=== PATIENT | male | born 1950 | race Caucasian/White ===

== ENCOUNTER 2021-11-14 02:31 | Inpatient (IN) | payer MEDICARE ==
[2021-11-14] MEDS ORDERED: Dextrose 5% in Water 1,000 ML IV PRN (04:26)
[2021-11-14] MEDS ORDERED: Dextrose 50% Abboject 50 ML SYRINGE SLOW IVP PRN (04:26)
[2021-11-14] MEDS ORDERED: HumaLOG 300 UNITS/3 ML VIAL SC PRN ×2 (04:26)
[2021-11-14] MEDS ORDERED: Albuterol 200 PUFF (6.7GM INHALER) INH PRN (04:26)
[2021-11-14 05:21] VITALS: BMI 31.1
[2021-11-14] MEDS ORDERED: Furosemide 40 MG/4 ML VIAL SLOW IVP SCH (06:00)
[2021-11-14 07:01] LABS: Magnesium 2.4 mg/dL (1.6-2.6)
[2021-11-14 07:02] LABS: INR-International Normal Ratio 2.1; PTT 36.5 sec (22.9-36.1); Prothrombin Time 23.5 sec (12.0-14.7)
[2021-11-14 07:04] LABS: ALT (SGPT) 1449 U/L (8-55); AST (SGOT) 1278 U/L (5-34); Albumin 4.4 g/dL (3.4-4.8); Alkaline Phosphatase 293 U/L (40-110); Anion Gap 18 mmol/L (10-20); BUN (Urea Nitrogen) 40 mg/dL (8.4-25.7); Bilirubin, Total 1.6 mg/dL (0.2-1.2); Calc. Creatinine Clearance 56 mL/min (70-130); Calcium 9.1 mg/dL (7.8-10.44); Carbon Dioxide 22 mmol/L (23-31); Chloride 101 mmol/L (98-107); Estimated GFR 49; Globulin 2.7 g/dL (2.4-3.5); Glucose 99 mg/dL (83-110); Potassium 4.2 mmol/L (3.5-5.1); Protein, Total 7.1 g/dL (5.8-8.1); Sodium 137 mmol/L (136-145)
[2021-11-14 07:07] LABS: Troponin I 0.205 ng/mL (< 0.028)
[2021-11-14] MEDS: Zinc Sulfate 220 MG CAP PO SCH (09:14)
[2021-11-14] MEDS: Pantoprazole 40 MG VIAL IVP SCH (09:14)
[2021-11-14] MEDS: Ascorbic Acid 500 mg Chewable Tablet PO SCH (09:14)
[2021-11-14 09:18] LABS: Troponin I 0.199 ng/mL (< 0.028)
[2021-11-14] MEDS: Cholecalciferol (Vitamin D3) 400 UNITS TAB PO SCH (09:22)
[2021-11-14 09:31] LABS: HBCM Index 0.06 S/CO (0-0.79); HBSAg Index 0.26 S/CO (0-0.99); Hep A IgM AB Non-Reactive (NonReactive); Hep A IgM S/CO 0.17 S/CO (0-0.79); Hep B Surf Ag Non-Reactive S/CO (NonReactive); Hepatitis B Core IgM Abs Non-Reactive (NonReactive); Thyroid Stimulating Hormone 3.8673 uIU/mL (0.35-4.94)
[2021-11-14 09:43] LABS: Hep C IgG Ab Reflex HepC Qnt (NonReactive); Hep C Index 2.65 S/CO (0-0.79)
[2021-11-14 12:23] LABS: Troponin I 0.182 ng/mL (< 0.028)
[2021-11-14 15:13] LABS: ALT (SGPT) 1344 U/L (8-55); AST (SGOT) 1220 U/L (5-34); Albumin 4.2 g/dL (3.4-4.8); Alkaline Phosphatase 289 U/L (40-110); Bilirubin, Direct 0.7 mg/dL (0.1-0.3); Bilirubin, Total 1.3 mg/dL (0.2-1.2)
[2021-11-14] MEDS: Carvedilol 6.25 MG TAB PO SCH (21:23)
[2021-11-14] MEDS: Benzonatate 100 MG CAP PO PRN (21:23)
[2021-11-15] MEDS: Milrinone Lactate/D5W 20 MG in Premix Bag 1 BAG IV SCH ×2 (01:13→22:26)
[2021-11-15 04:29] LABS: #Eosinphils 0.1 thou/uL (0.0-0.7); #Monocytes 0.8 thou/uL (0.11-0.59); #Neutrophils 7.7 thou/uL (1.40-6.50); %Basophils 0.2 % (0.0-1.0); %Eosinophils 1.1 % (0.0-10.0); %Monocytes 7.9 % (0.0-10.0); %Neutrophils 80.8 % (42.0-75.0); Hemoglobin 14.6 g/dL (14.0-18.0); Mean Corpuscular HGB CONC 33.1 g/dL (32.0-36.0); Mean Corpuscular Hemoglobin 31.6 pg (27.0-31.0); Mean Corpuscular Volume 95.7 fL (78.0-98.0); Mean Platelet Volume 7.9 fL (7.4-10.4); Platelet Count 229 thou/uL (130-400); RBC Distribution Width 13.1 % (11.5-14.5); Red Blood Cell (RBC) Count 4.63 mill/uL (4.70-6.10); White Blood Cell (WBC) Count 9.6 thou/uL (4.8-10.8)
[2021-11-15 04:45] LABS: INR-International Normal Ratio 1.5; Prothrombin Time 18.2 sec (12.0-14.7)
[2021-11-15 04:50] LABS: ALT (SGPT) 997 U/L (8-55); AST (SGOT) 557 U/L (5-34); Albumin 3.8 g/dL (3.4-4.8); Alkaline Phosphatase 271 U/L (40-110); Anion Gap 14 mmol/L (10-20); BUN (Urea Nitrogen) 32 mg/dL (8.4-25.7); Bilirubin, Total 1.4 mg/dL (0.2-1.2); Calc. Creatinine Clearance 68 mL/min (70-130); Calcium 8.6 mg/dL (7.8-10.44); Carbon Dioxide 26 mmol/L (23-31); Chloride 100 mmol/L (98-107); Estimated GFR 61; Globulin 2.7 g/dL (2.4-3.5); Glucose 110 mg/dL (83-110); Magnesium 2.3 mg/dL (1.6-2.6); Potassium 3.3 mmol/L (3.5-5.1); Protein, Total 6.5 g/dL (5.8-8.1); Sodium 137 mmol/L (136-145)
[2021-11-15] MEDS ORDERED: Potassium Chloride 20 MEQ TAB PO SCH (08:00)
[2021-11-15] MEDS: Carvedilol 6.25 MG TAB PO SCH ×2 (08:59→20:43)
[2021-11-15] MEDS: Ascorbic Acid 500 mg Chewable Tablet PO SCH (08:59)
[2021-11-15] MEDS: Pantoprazole 40 MG VIAL IVP SCH (09:00)
[2021-11-15] MEDS: Cholecalciferol (Vitamin D3) 400 UNITS TAB PO SCH (09:01)
[2021-11-15] MEDS: Zinc Sulfate 220 MG CAP PO SCH (09:01)
[2021-11-15] MEDS ORDERED: Citalopram 20 MG TAB PO SCH (10:00)
[2021-11-15] MEDS ORDERED: Dronedarone HCl 400 MG TAB PO SCH (10:30)
[2021-11-15] MEDS: Dronedarone HCl 400 MG TAB PO SCH (17:21)
[2021-11-15] MEDS: Potassium Chloride 20 MEQ TAB PO SCH (20:43)
[2021-11-15] MEDS: Benzonatate 100 MG CAP PO PRN (20:44)
[2021-11-15] MEDS: traMADol HCl 50 MG TAB PO PRN (20:45)
[2021-11-16] MEDS: traMADol HCl 50 MG TAB PO PRN (04:19)
[2021-11-16 04:43] LABS: #Eosinphils 0.2 thou/uL (0.0-0.7); #Lymphocytes 1.1 thou/uL (1.20-3.40); #Monocytes 0.9 thou/uL (0.11-0.59); %Basophils 0.2 % (0.0-1.0); %Eosinophils 2.1 % (0.0-10.0); %Lymphocytes 11.8 % (21.0-51.0); %Monocytes 9.3 % (0.0-10.0); %Neutrophils 76.7 % (42.0-75.0); Hemoglobin 14.8 g/dL (14.0-18.0); Mean Corpuscular HGB CONC 33.1 g/dL (32.0-36.0); Mean Corpuscular Hemoglobin 31.9 pg (27.0-31.0); Mean Corpuscular Volume 96.4 fL (78.0-98.0); Mean Platelet Volume 7.9 fL (7.4-10.4); Platelet Count 219 thou/uL (130-400); RBC Distribution Width 13.3 % (11.5-14.5); Red Blood Cell (RBC) Count 4.65 mill/uL (4.70-6.10); White Blood Cell (WBC) Count 9.1 thou/uL (4.8-10.8)
[2021-11-16 05:07] LABS: ALT (SGPT) 823 U/L (8-55); AST (SGOT) 277 U/L (5-34); Albumin 3.7 g/dL (3.4-4.8); Alkaline Phosphatase 268 U/L (40-110); Anion Gap 12 mmol/L (10-20); BUN (Urea Nitrogen) 22 mg/dL (8.4-25.7); Bilirubin, Total 1.5 mg/dL (0.2-1.2); Calc. Creatinine Clearance 80 mL/min (70-130); Calcium 8.6 mg/dL (7.8-10.44); Carbon Dioxide 30 mmol/L (23-31); Chloride 101 mmol/L (98-107); Estimated GFR 74; Globulin 2.8 g/dL (2.4-3.5); Glucose 97 mg/dL (83-110); Iron 45 ug/dL (65-175); Iron Binding Capacity, Total 330 mcg/dL (261-462); Iron Binding Capacity, Total 334 mcg/dL (261-462); Magnesium 2.5 mg/dL (1.6-2.6); Protein, Total 6.5 g/dL (5.8-8.1); Sodium 139 mmol/L (136-145)
[2021-11-16] MEDS ORDERED: Levothyroxine 175 MCG TAB PO SCH (06:00)
[2021-11-16] MEDS: Furosemide 40 MG/4 ML VIAL SLOW IVP SCH ×3 (08:58→20:23)
[2021-11-16] MEDS ORDERED: Citalopram 20 MG TAB PO SCH (09:00)
[2021-11-16] MEDS: Milrinone Lactate/D5W 20 MG in Premix Bag 1 BAG IV SCH (09:28)
[2021-11-16] MEDS: Carvedilol 6.25 MG TAB PO SCH ×2 (09:29→20:24)
[2021-11-16] MEDS: Ascorbic Acid 500 mg Chewable Tablet PO SCH (09:29)
[2021-11-16] MEDS: Dronedarone HCl 400 MG TAB PO SCH (09:29)
[2021-11-16] MEDS: Pantoprazole 40 MG VIAL IVP SCH (09:30)
[2021-11-16] MEDS: Cholecalciferol (Vitamin D3) 400 UNITS TAB PO SCH (09:30)
[2021-11-16] MEDS: Zinc Sulfate 220 MG CAP PO SCH (09:30)
[2021-11-16] MEDS: Potassium Chloride 20 MEQ TAB PO SCH ×2 (09:30→20:24)
[2021-11-16 09:38] LABS: EBV VCA IgM <36.0 U/mL (0.0-35.9)
[2021-11-16] MEDS ORDERED: Ondansetron PF 4 MG/2 ML Vial IVP PRN (12:23)
[2021-11-16 16:38] LABS: Alpha-1-Antitrypsin 141 mg/dL (101-187)
[2021-11-16] MEDS: Benzonatate 100 MG CAP PO PRN (20:24)
[2021-11-16] MEDS ORDERED: NIRMATRELVIR 150 MG/RITONAVIR 100 MG TABLET PO SCH (21:00)
[2021-11-16 21:07] LABS: Hep C PCR-Quant HCV Not Detected IU/mL (.)
[2021-11-16 23:01] VITALS: BP 101/55; TEMP 98.1
[2021-11-18 17:13] LABS: Smooth Muscle Total ABS 3 Units (0-19)
[2021-11-19 13:53] LABS: ANA Symphony (Qualitative) Negative (Negative); ANA Symphony (Quantitative) 0.2 Ratio (< 0.7 Negative); EliA Vaculitis New Method **** NEW METHOD ****; Mitochondrial Ab 0.6 U/mL (<4 Negative); dsDNA IgG Antibody 0.6 IU/mL (<10 Negative)
== END 2021-11-17 00:45 | disposition short-term general hospital (02) | DRG 177 ==
LOC: 2NO 04:07
PROVIDERS: ADMIT Internal Medicine; ATTEND Internal Medicine
PROC: 8E0ZXY6 Isolation (ICD-10-PCS; 2021-11-14)
PROC: XW033H6 Introduction of Other New Technology Monoclonal Antibody into Peripheral Vein, Percutaneous Approach, New Technology Group 6 (ICD-10-PCS; principal; 2021-11-16)
DX: U07.1 COVID-19 (principal); K72.00 Acute and subacute hepatic failure without coma; I50.43 Acute on chronic combined systolic (congestive) and diastolic (congestive) heart failure; I42.8 Other cardiomyopathies; N40.0 Benign prostatic hyperplasia without lower urinary tract symptoms; I11.0 Hypertensive heart disease with heart failure; I48.0 Paroxysmal atrial fibrillation; I25.10 Atherosclerotic heart disease of native coronary artery without angina pectoris; Z98.52 Vasectomy status; Z95.810 Presence of automatic (implantable) cardiac defibrillator; Z88.8 Allergy status to other drugs, medicaments and biological substances; Z79.01 Long term (current) use of anticoagulants; Z79.899 Other long term (current) drug therapy; Z79.890 Hormone replacement therapy; Z79.51 Long term (current) use of inhaled steroids
CPT/HCPCS: 36415; 36416; 71045; 76705; 80053; 80074; 82103; 82390; 82728; 83516; 83540; 83550; 83735; 83880; 84443; 85025; 85610; 85730; 86015; 86038; 86225; 86664; 86665; 87522; 93306; 97139; C9113; J1940; J2260